=== PATIENT | male | born 1965 | race Caucasian/White ===

== ENCOUNTER 2016-12-30 17:43 | Emergency (ER) | payer BC, OTHER ==
[~2016-12-30] VITALS: Ht 170.2 cm; Wt 74.8 kg
[2016-12-30] MEDS ORDERED: LISINOPRIL 20 MG TABLET PO (18:25)
[2016-12-30] MEDS ORDERED: LANTUS SQ (18:25)
[2016-12-30] MEDS ORDERED: METFORMIN HCL 1,000 MG TABLET PO (18:25)
[2016-12-30] MEDS ORDERED: VIREAD 300 MG PO (18:25)
--- NOTE | 2016-12-30 19:12 | NUR ---
Patient discharged to home in stable conditon. Written and verbal after care instructions given. Patient verbalizes understanding of instructions.pt walks in steady gait
== END 2016-12-30 19:18 | disposition home or self-care (01) ==
LOC: ER 17:44
DX: S13.4XXA Sprain of ligaments of cervical spine, initial encounter (principal); S33.5XXA Sprain of ligaments of lumbar spine, initial encounter; I10 Essential (primary) hypertension; E11.9 Type 2 diabetes mellitus without complications; Z79.4 Long term (current) use of insulin; V43.52XA Car driver injured in collision with other type car in traffic accident, initial encounter; Y93.89 Activity, other specified; Y92.413 State road as the place of occurrence of the external cause; Y99.9 Unspecified external cause status
CPT/HCPCS: A4663